=== PATIENT | female | born 1950 | race Caucasian/White ===

== ENCOUNTER 2020-05-27 06:29 | Outpatient (CLI) | payer MEDICARE, OTHER ==
[2020-05-27 11:00] LABS: INR-International Normal Ratio 0.9; PTT 34.3 sec (22.9-36.1)
[2020-05-27 11:09] LABS: Hemoglobin 14.3 g/dL (12.0-16.0); Mean Corpuscular HGB CONC 32.8 g/dL (32.0-36.0); Mean Corpuscular Hemoglobin 31.3 pg (27.0-31.0); Mean Corpuscular Volume 95.3 fL (78.0-98.0); Mean Platelet Volume 7.9 fL (7.4-10.4); Platelet Count 212 thou/uL (130-400); Red Blood Cell (RBC) Count 4.57 mill/uL (4.20-5.40); White Blood Cell (WBC) Count 6.2 thou/uL (4.8-10.8)
[2020-05-27 12:23] LABS: Chloride 107 mmol/L (98-107); Potassium 4.6 mmol/L (3.5-5.1); Sodium 138 mmol/L (136-145)
[2020-05-27 12:24] LABS: Calcium 9.4 mg/dL (7.8-10.44); Glucose 93 mg/dL (83-110)
[2020-05-27 12:25] LABS: Anion Gap 12 mmol/L (10-20); Carbon Dioxide 24 mmol/L (23-31)
[2020-05-27 12:27] LABS: Calc. Creatinine Clearance 0 mL/min (70-130); Estimated GFR-MDRD 60
[2020-05-27 12:28] LABS: BUN (Urea Nitrogen) 18 mg/dL (9.8-20.1)
[2020-05-28 12:05] LABS: SARS-CoV-2 MS2 Positive; SARS-CoV-2 N Gene Negative; SARS-CoV-2 S Gene Negative; SARS-CoV-2 by NAA Not Detected (NotDetected); SARS-CoV-2 orf1ab Negative
== END 2020-05-27 06:30 | disposition home or self-care (01) ==
LOC: LABBT 06:29
PROVIDERS: ATTEND Surgery
DX: Z01.818 Encounter for other preprocedural examination (principal); Z11.59 Encounter for screening for other viral diseases; M48.02 Spinal stenosis, cervical region; M54.12 Radiculopathy, cervical region
CPT/HCPCS: 80048; 85027; 85610; 85730; 93005; U0003; 87635; 93010

== ENCOUNTER 2020-06-27 12:43 | Outpatient (CLI) | payer MEDICARE ==
--- NOTE | 2020-06-27 13:43 | BD ---
Exam: DEXA Bone Density 06/27/20 PROVIDED CLINICAL HISTORY: Postmenopausal screening. Lumbar Spine: BMD (g/cm2) T-SCORE L1 0.678 -2.8 L2 0.630 -3.6 L3 0.686 -3.6 L4 0.685 -3.4 L1-L4 0.671 -3.4 Femoral Neck: 0.621 -2.1 Total Femur: 0.652 -2.4 Impression: Calculated bone mineral density meets WHO criteria for osteoporosis and puts patient at prominent inc reased risk for fracture. POS: SARITHA
== END 2020-06-27 12:44 | disposition home or self-care (01) ==
LOC: BICMAMMO 12:43
PROVIDERS: ATTEND Surgery
DX: M81.0 Age-related osteoporosis without current pathological fracture (principal); M48.02 Spinal stenosis, cervical region
CPT/HCPCS: 77080

== ENCOUNTER 2021-04-14 09:25 | Outpatient (CLI) | payer MEDICARE | END 2021-04-14 09:26 | disposition home or self-care (01) | LOC: BICULT 09:25 | PROVIDERS: ATTEND Internal Medicine | DX: Z13.6 Encounter for screening for cardiovascular disorders (principal); Z12.2 Encounter for screening for malignant neoplasm of respiratory organs; Z87.891 Personal history of nicotine dependence | CPT/HCPCS: 71271; 76775 ==

== ENCOUNTER 2023-09-27 13:00 | Outpatient (CLI) | payer MEDICARE | END 2023-09-27 13:01 | disposition home or self-care (01) | LOC: RAD 13:00 | PROVIDERS: ATTEND Internal Medicine Critical Care Medicine | DX: R06.00 Dyspnea, unspecified (principal) | CPT/HCPCS: 71046 ==